=== PATIENT | male | born 1995 | race Caucasian/White ===

== ENCOUNTER → 2018-07-28 | Outpatient (CLI) | payer BC ==
--- NOTE | 2018-07-28 10:19 | US ---
EXAMINATION TYPE: US duplex aorta DATE OF EXAM: 07/28/2018 COMPARISON: NONE CLINICAL HISTORY: Z13.6 Encounter for screening for cardiovascular d. father has dist AAA and Uncle d ied from ruptured AAA EXAM MEASUREMENTS: Abdominal Aorta: Proximal: 2.2 x 2.0cm Mid: 1.6 x 1.7cm Distal: 1.4 x 1.4cm Bifurcation: 0.9cm 0.9cm Normal caliber aorta seen with no obvious abnormality seen. IMPRESSION: No sonographic evidence of abdominal aortic aneurysm in the visualized portions of the ab dominal aorta.
== END | disposition home or self-care (01) ==
LOC: RADUSWWP 09:47
PROVIDERS: ATTEND Family Medicine
DX: Z13.6 Encounter for screening for cardiovascular disorders (principal)
CPT/HCPCS: 93979

== ENCOUNTER → 2021-07-24 | Outpatient (CLI) | payer SELFPAY ==
--- NOTE | 2021-07-24 08:48 | US ---
EXAMINATION TYPE: US liver DATE OF EXAM: 07/24/2021 COMPARISON: NONE CLINICAL HISTORY: R94.5 ABN LIVER FUNCTION TEST. Abnormal labs with no pain or other symptoms EXAM MEASUREMENTS: Liver Length: 17.9 cm Gallbladder Wall: 0.2 cm CBD: 0.2 cm Right Kidney: 1.8 x 5.3 x 5.4 cm Pancreas: Tail obscured by overlying bowel gas Liver: Increased attenuation, no surrounding ascites. Gallbladder: No stones seen Evidence for sonographic Jensen's sign: No CBD: wnl Right Kidney: No hydronephrosis or masses seen Heterogeneous hyperechoic appearance of liver. Evaluation for focal masses suboptimal due to the hete rogeneity. IMPRESSION: Heterogeneous hyperechoic appearance of liver consistent with diffuse fatty infiltration and/or underlying hepatocellular disease. Former is favored. Patient may benefit with ultrasound elas tography to further evaluate.
== END | disposition home or self-care (01) ==
LOC: RADUSWWP 08:05
PROVIDERS: ATTEND Family Medicine
DX: K76.89 Other specified diseases of liver (principal)
CPT/HCPCS: 76705

== ENCOUNTER → 2021-10-08 | Outpatient (CLI) | payer BC ==
[2021-10-09 01:15] LABS: African American GFR (CKD) 103.8 (60.0-200.0); Albumin 4.5 g/dL (3.8-4.9); Anion Gap 12.8 mmol/L (10.00-18.00); BUN/Creat Ratio 14.91 Ratio (12.00-20.00); Blood Urea Nitrogen 16.7 mg/dL (9.0-27.0); Calcium 9.7 mg/dL (8.7-10.3); Carbon Dioxide 21.9 mmol/L (20.0-27.5); Non-African American GFR(CKD) 89.5 (60.0-200.0); Potassium 4.4 mmol/L (3.5-5.5); Total Protein 7.3 g/dL (6.2-8.2)
[2021-10-09 01:16] LABS: % Iron Saturation 36.96 (15.00-50.00); Albumin/Globulin Ratio 1.66 (1.60-3.17); Globulin 2.7 g/dL (1.6-3.3); Total Bilirubin 0.3 mg/dL (0.30-1.20)
[2021-10-09 01:53] LABS: Basophils # (A) 0.04 X 10*3/uL (0.00-0.10); Basophils % (A) 0.5 %; Eosinophils # (A) 0.29 X 10*3/uL (0.04-0.35); Eosinophils % (A) 3.8 %; HCT 44.7 % (39.6-50.0); HGB 15.2 g/dL (13.0-17.0); Immature Grans, Automated 0.1 %; Lymphocytes # (A) 2.87 X 10*3/uL (0.90-5.00); Lymphocytes % (A) 37.5 %; MCH 30.7 pg (27.0-32.0); MCV 90.3 fL (80.0-97.0); Mean Platelet Volume 10.7 fL (9.5-12.2); Monocytes % (A) 7.8 %; NRBC Per 100 WBC 0 /100 WBCS (0.0-0.0); Neutrophils # (A) 3.85 X 10*3/uL (1.80-7.70); Neutrophils % (A) 50.3 %; Platelet Count 298 X 10*3/uL (140-440); RBC 4.95 X 10*6/uL (4.40-5.60); RDW 12.3 % (11.5-14.5); WBC 7.66 X 10*3/uL (4.50-10.00)
[2021-10-09 05:10] LABS: Ceruloplasmin 19.9 mg/dL (20.0-60.0)
[2021-10-09 08:17] LABS: Protein, Total 7.4 g/dL (6.2-8.2)
[2021-10-09 14:51] LABS: Albumin 4.34 g/dL (3.80-4.90); Gamma Globulin 1.38 g/dL (0.70-1.50)
== END | disposition home or self-care (01) ==
LOC: LABWHC1 15:27
PROVIDERS: ATTEND Internal Medicine Gastroenterology
DX: R74.01 Elevation of levels of liver transaminase levels (principal)
CPT/HCPCS: 36415; 80053; 82103; 82390; 82728; 83540; 83550; 84165; 85025; 86038

== ENCOUNTER → 2022-07-09 | Outpatient (CLI) | payer BC ==
[2022-07-09 23:15] LABS: HGB 14.8 g/dL (13.0-17.0); MCH 29.7 pg (27.0-32.0); MCHC 32.2 g/dL (32.0-37.0); MCV 92.4 fL (80.0-97.0); Mean Platelet Volume 10.2 fL (9.5-12.2); NRBC Per 100 WBC 0 /100 WBCS (0.0-0.0); Platelet Count 277 X 10*3/uL (140-440); RBC 4.98 X 10*6/uL (4.40-5.60); RDW 12.4 % (11.5-14.5); WBC 7.17 X 10*3/uL (4.50-10.00)
[2022-07-09 23:44] LABS: African American GFR (CKD) 112.7 (60.0-200.0); Albumin 4.6 g/dL (3.8-4.9); Albumin/Globulin Ratio 1.53 (1.60-3.17); Anion Gap 10.6 mmol/L (10.00-18.00); BUN/Creat Ratio 12.12 Ratio (12.00-20.00); Blood Urea Nitrogen 12.6 mg/dL (9.0-27.0); Carbon Dioxide 26.4 mmol/L (20.0-27.5); Non-African American GFR(CKD) 97.3 (60.0-200.0); Potassium 4.3 mmol/L (3.5-5.5); Total Bilirubin 0.5 mg/dL (0.30-1.20); Total Protein 7.6 g/dL (6.2-8.2)
[2022-07-09 23:52] LABS: Basophils # (A) 0.02 X 10*3/uL (0.00-0.10); Basophils % (A) 0.3 %; Eosinophils % (A) 1.4 %; Immature Grans, Automated 0.3 %; Lymphocytes # (A) 2.08 X 10*3/uL (0.90-5.00); Monocytes # (A) 0.67 X 10*3/uL (0.20-1.00); Monocytes % (A) 9.3 %; Neutrophils # (A) 4.28 X 10*3/uL (1.80-7.70); Neutrophils % (A) 59.7 %; RBC Morphology NORMAL
== END | disposition home or self-care (01) ==
LOC: LABWHC1 13:45
PROVIDERS: ATTEND Internal Medicine Gastroenterology
DX: K76.0 Fatty (change of) liver, not elsewhere classified (principal)
CPT/HCPCS: 36415; 80053; 85025

== ENCOUNTER → 2023-02-18 | Outpatient (CLI) | payer BC | END | disposition home or self-care (01) | LOC: LABWHC1 11:56 | PROVIDERS: ATTEND Internal Medicine Gastroenterology | DX: K76.0 Fatty (change of) liver, not elsewhere classified (principal) | CPT/HCPCS: 36415 ==

== ENCOUNTER 2023-05-25 21:38 | Emergency (ER) | payer BC ==
[2023-05-25 21:57] VITALS: BP 121/74; PULSE 65; RESP 18; TEMP 97.9
[2023-05-25 22:17] LABS: Basophils % (A) 0 %; Eosinophils # (A) 0.2 k/uL (0-0.7); Eosinophils % (A) 3 %; HCT 42.4 % (39.0-53.0); HGB 14.6 gm/dL (13.0-17.5); Lymphocytes # (A) 3.6 k/uL (1.0-4.8); Lymphocytes % (A) 41 %; MCHC 34.5 g/dL (31.0-37.0); Monocytes # (A) 0.5 k/uL (0-1.0); Monocytes % (A) 5 %; Neutrophils # (A) 4.3 k/uL (1.3-7.7); Neutrophils % (A) 49 %; Platelet Count 241 k/uL (150-450); RBC 4.71 m/uL (4.30-5.90); RDW 12.3 % (11.5-15.5); WBC 8.9 k/uL (3.8-10.6)
--- NOTE | 2023-05-25 22:31 | XR ---
EXAMINATION TYPE: XR chest 2V DATE OF EXAM: 05/25/2023 10:11 PM CLINICAL INDICATION:Male, 28 years old with history of chest pain; [facility] COMPARISON: None TECHNIQUE: XR chest 2V Frontal and lateral views of the chest. FINDINGS: Lungs/Pleura: There is no evidence of pleural effusion, focal consolidation, or pneumothorax. Pulmonary vascularity: Unremarkable. Heart/mediastinum: Cardiomediastinal silhouette is unremarkable. Musculoskeletal: No acute osseous pathology. Other findings: None IMPRESSION: No acute cardiopulmonary disease/process.
[2023-05-25 22:32] LABS: ALT 29 U/L (4-49); AST 26 U/L (17-59); African American GFR (CKD) >90 (>60 ml/min/1.73 sqM); Albumin 4.6 g/dL (3.5-5.0); Alkaline Phosphatase 77 U/L (38-126); Anion Gap 10 mmol/L; Blood Urea Nitrogen 15 mg/dL (9-20); Calcium 9.5 mg/dL (8.4-10.2); Carbon Dioxide 27 mmol/L (22-30); Chloride 102 mmol/L (98-107); Glucose 91 mg/dL (74-99); Non-African American GFR(CKD) >90 (>60 ml/min/1.73 sqM); Potassium 4.2 mmol/L (3.5-5.1); Sodium 139 mmol/L (137-145); Total Bilirubin 0.5 mg/dL (0.2-1.3); Total Protein 7.7 g/dL (6.3-8.2)
[2023-05-25 22:33] LABS: Prothrombin Time 10.8 sec (10.0-12.5)
== END 2023-05-26 01:00 | disposition left against medical advice (07) ==
LOC: EC 21:38
DX: Z53.21 Procedure and treatment not carried out due to patient leaving prior to being seen by health care provider (principal); R07.9 Chest pain, unspecified
CPT/HCPCS: 36415; 71046; 80053; 84484; 85025; 85610; 85730; 93005; 99499

== ENCOUNTER 2023-06-28 09:21 | Emergency (ER) | payer BC ==
[2023-06-28 09:52] VITALS: TEMP 98.3
[2023-06-28] MEDS ORDERED: ONDANSETRON 4 MG/2 ML VIAL IVP STA (10:09)
[2023-06-28] MEDS ORDERED: SODIUM CHLORIDE 0.9% 1,000 ML IV STA (10:09)
[2023-06-28] MEDS ORDERED: SODIUM CHLORIDE 0.9% 500 ML 500 ML IV STA (10:09)
[2023-06-28 10:34] LABS: Basophils % (A) 0 %; Eosinophils # (A) 0.1 k/uL (0-0.7); Eosinophils % (A) 1 %; HCT 43.8 % (39.0-53.0); HGB 15.2 gm/dL (13.0-17.5); Lymphocytes # (A) 1.9 k/uL (1.0-4.8); Lymphocytes % (A) 21 %; MCHC 34.7 g/dL (31.0-37.0); MCV 89.1 fL (80.0-100.0); Mean Platelet Volume 7.6; Monocytes # (A) 0.3 k/uL (0-1.0); Monocytes % (A) 3 %; Neutrophils # (A) 6.8 k/uL (1.3-7.7); Neutrophils % (A) 74 %; Platelet Count 244 k/uL (150-450); RBC 4.92 m/uL (4.30-5.90); RDW 11.9 % (11.5-15.5); WBC 9.2 k/uL (3.8-10.6)
--- NOTE | 2023-06-28 10:41 | ED ---
Abdominal Pain HPI - General Chief Complaint: Abdominal Pain Stated Complaint: right abd pain Time Seen by Provider: 06/28/23 09:42 Source: patient, RN notes reviewed Mode of arrival: wheelchair Limitations: no limitations - History of Present Illness Initial Comments: This a 28-year-old male presents emergency department tingling of abdominal pain. Patient states she's had increasing last few days. Patient states that nausea vomiting pain. Patient states he is unable to keep any down he complains of right lower quadrant pain and epigastric discomfort. Denies any flank pain no history kidney stones no prior GI disorders no prior abdominal surgeries. Patient denies dysuria hematuria. Nothing makes the pain feel better - Related Data Previous Rx's Medication Instructions Recorded Ondansetron Odt [Zofran Odt] 4 mg PO Q8HR PRN #10 tab 06/28/23 Allergies Allergy/AdvReac Type Severity Reaction Status Date / Time No Known Allergies Allergy Verified 06/28/23 09:40 Review of Systems ROS Statement: Those systems with pertinent positive or pertinent negative responses have been documented in the HPI. ROS Other: All systems not noted in ROS Statement are negative. Past Medical History Past Medical History: No Reported History History of Any Multi-Drug Resistant Organisms: MRSA Date of last positivie culture/infection: 2010 Past Surgical History: No Surgical Hx Reported Past Psychological History: No Psychological Hx Reported Smoking Status: Vaper Past Alcohol Use History: None Reported Past Drug Use History: None Reported General Exam Limitations: no limitations General appearance: alert, in no apparent distress Head exam: Present: atraumatic, normocephalic, normal inspection Eye exam: Present: normal appearance, PERRL, EOMI. Absent: scleral icterus, conjunctival injection, periorbital swelling Neck exam: Present: normal inspection, full ROM. Absent: tenderness, meningismus, lymphadenopathy Respiratory exam: Present: normal lung sounds bilaterally. Absent: respiratory distress, wheezes, rales, rhonchi, stridor Cardiovascular Exam: Present: regular rate, normal rhythm, normal heart sounds. Absent: systolic murmur, diastolic murmur, rubs, gallop, clicks GI/Abdominal exam: Present: soft, normal bowel sounds. Absent: distended, tenderness, guarding, rebound, rigid Back exam: Absent: CVA tenderness (R), CVA tenderness (L) Neurological exam: Present: alert, oriented X3 Skin exam: Present: warm, dry, intact, normal color. Absent: rash Course Vital Signs 06/28/23 06/28/23 06/28/23 09:40 10:37 12:54 Temperature 98.3 F Pulse Rate 61 55 L 80 Respiratory 18 20 20 Rate Blood Pressure 119/86 117/73 138/80 O2 Sat by Pulse 97 98 98 Oximetry Medical Decision Making - Medical Decision Making Was pt. sent in by a medical professional or institution (, [facility], [facility], urgent care, hospital, or fdc...) When possible be specific @ -No Did you speak to anyone other than the patient for history (EMS, parent, family, police, friend...)? What history was obtained from this source @ -No Did you review nursing and triage notes (agree or disagree)? Why? @ -I reviewed and agree with nursing and triage notes Were old charts reviewed (outside hosp., previous admission, EMS record, old EKG, old radiological studies, urgent care reports/EKG's, fdc records)? Report findings @ -No old charts were reviewed Differential Diagnosis (chest pain, altered mental status, abdominal pain women, abdominal pain men, vaginal bleeding, weakness, fever, dyspnea, syncope, headache, dizziness, GI bleed, back pain, seizure, CVA, palpatations, mental health, musculoskeletal)? @ -Differential Abdominal Pain Men: Appendicitis, cholecystitis, diverticulosis, ischemic bowel, pancreatitis, hepatitis, UTI, gastroenteritis, AAA, incarcerated hernia, bowel obstruction, constipation, inflammatory bowel, hepatitis, peptic ulcer disease, splenic infarction, perforated viscus, testicular torsion, this is not meant to be an all-inclusive listlicable EKG interpreted by me (3pts min.). @ -None X-rays interpreted by me (1pt min.). @ -None done CT interpreted by me (1pt min.). @ -CT shows evidence of enteritis, colitis type changes there is possible under lying concern for IBD U/S interpreted by me (1pt. min.). @ -None done What testing was considered but not performed or refused? (CT, X-rays, U/S, labs)? Why? @ -None What meds were considered but not given or refused? Why? @ -None Did you discuss the management of the patient with other professionals (professionals i.e. , PA, FLUTE TEACHER, lab, RT, psych nurse, social and political studies professor, pond tender, teacher, preventive medicine officer, nurse case manager)? Give summary @ -No Was smoking cessation discussed for >3mins.? @ -No Was critical care preformed (if so, how long)? @ -No Were there social determinants of health that impacted care today? How? (Homelessness, low income, unemployed, alcoholism, drug addiction, transportation, low edu. Level, literacy, decrease access to med. care, [facility], rehab)? @ -No Was there de-escalation of care discussed even if they declined (Discuss DNR or withdrawal of care, Hospice)? DNR status @ -No What co-morbidities impacted this encounter? (DM, HTN, Smoking, COPD, CAD, Ca ncer, CVA, ARF, Chemo, Hep., AIDS, mental health diagnosis, sleep apnea, morbid obesity)? @ -None Was patient admitted / discharged? Hospital course, mention meds given and route, prescriptions, significant lab abnormalities, going to OR and other pertinent info. @ -Discharged patient is advised to follow-up with Dr. Dejah MYERS for colonoscopy as there is concern for a bowel disease. Patient more likely has underlying viral enteritis be discharged with supportive treatment with close follow-up Undiagnosed new problem with uncertain prognosis? @ -No Drug Therapy requiring intensive monitoring for toxicity (Heparin, Nitro, Insulin, Cardizem)? @ -No Were any procedures done? @ -No Diagnosis/symptom? @ -Enteritis, colitis Acute, or Chronic, or Acute on Chronic? @ -Acute Uncomplicated (without systemic symptoms) or Complicated (systemic symptoms)? @ -Uncomplicated Side effects of treatment? @ -No Exacerbation, Progression, or Severe Exacerbation? @ -No Poses a threat to life or bodily function? How? (Chest pain, [place], [place], pneumonia, PE, COPD, DKA, ARF, appy, cholecystitis, CVA, Diverticulitis, Homicidal, Suici toribio, threat to staff... and all critical care pts) @ -No - Lab Data Result diagrams: 06/28/23 10:09 06/28/23 10:09 Lab Results 06/28/23 06/28/23 06/28/23 Range/Units 10:09 10:09 10:09 WBC 9.2 (3.8-10.6) k/uL RBC 4.92 (4.30-5.90) m/uL Hgb 15.2 (13.0-17.5) gm/dL Hct 43.8 (39.0-53.0) % MCV 89.1 (80.0-100.0) fL MCH 31.0 (25.0-35.0) pg MCHC 34.7 (31.0-37.0) g/dL RDW 11.9 (11.5-15.5) % Plt Count 244 (150-450) k/uL MPV 7.6 Neutrophils % 74 % Lymphocytes % 21 % Monocytes % 3 % Eosinophils % 1 % Basophils % 0 % Neutrophils # 6.8 (1.3-7.7) k/uL Lymphocytes # 1.9 (1.0-4.8) k/uL Monocytes # 0.3 (0-1.0) k/uL Eosinophils # 0.1 (0-0.7) k/uL Basophils # 0.0 (0-0.2) k/uL Sodium 138 (137-145) mmol/L Potassium 4.5 (3.5-5.1) mmol/L Chloride 104 (98-107) mmol/L Carbon Dioxide 22 (22-30) mmol/L Anion Gap 12 mmol/L BUN 13 (9-20) mg/dL Creatinine 0.81 (0.66-1.25) mg/dL Est GFR (CKD-EPI)AfAm >90 (>60 ml/min/1.73 sqM) Est GFR (CKD-EPI)NonAf >90 (>60 ml/min/1.73 sqM) Glucose 141 H (74-99) mg/dL Plasma Lactic Acid Odug 1.6 (0.7-2.0) mmol/L Calcium 10.0 (8.4-10.2) mg/dL Total Bilirubin 0.5 (0.2-1.3) mg/dL AST 25 (17-59) U/L ALT 27 (4-49) U/L Alkaline Phosphatase 72 (38-126) U/L Total Protein 7.8 (6.3-8.2) g/dL Albumin 4.7 (3.5-5.0) g/dL Lipase 54 (23-300) U/L Urine Color Urine Appearance (Clear) Urine pH (5.0-8.0) Ur Specific [place] (1.001-1.035) Urine Protein (Negative) Urine Glucose (UA) (Negative) Urine Ketones (Negative) Urine Blood (Negative) Urine Nitrite (Negative) Urine Bilirubin (Negative) Urine Urobilinogen (<2.0) mg/dL Ur Leukocyte Esterase (Negative) Urine RBC (0-5) /hpf Urine WBC (0-5) /hpf Amorphous Sediment (None) /hpf Urine Mucus (None) /hpf 06/28/23 Range/Units 10:24 WBC (3.8-10.6) k/uL RBC (4.30-5.90) m/uL Hgb (13.0-17.5) gm/dL Hct (39.0-53.0) % MCV (80.0-100.0) fL MCH (25.0-35.0) pg MCHC (31.0-37.0) g/dL RDW (11.5-15.5) % Plt Count (150-450) k/uL MPV Neutrophils % % Lymphocytes % % Monocytes % % Eosinophils % % Basophils % % Neutrophils # (1.3-7.7) k/uL Lymphocytes # (1.0-4.8) k/uL Monocytes # (0-1.0) k/uL Eosinophils # (0-0.7) k/uL Basophils # (0-0.2) k/uL Sodium (137-145) mmol/L Potassium (3.5-5.1) mmol/L Chloride (98-107) mmol/L Carbon Dioxide (22-30) mmol/L Anion Gap mmol/L BUN (9-20) mg/dL Creatinine (0.66-1.25) mg/dL Est GFR (CKD-EPI)AfAm (>60 ml/min/1.73 sqM) Est GFR (CKD-EPI)NonAf (>60 ml/min/1.73 sqM) Glucose (74-99) mg/dL Plasma Lactic Acid Doug (0.7-2.0) mmol/L Calcium (8.4-10.2) mg/dL Total Bilirubin (0.2-1.3) mg/dL AST (17-59) U/L ALT (4-49) U/L Alkaline Phosphatase (38-126) U/L Total Protein (6.3-8.2) g/dL Albumin (3.5-5.0) g/dL Lipase (23-300) U/L Urine Color Yellow Urine Appearance Cloudy (Clear) Urine pH 7.0 (5.0-8.0) Ur Specific [place] 1.027 (1.001-1.035) Urine Protein Negative (Negative) Urine Glucose (UA) 2+ H (Negative) Urine Ketones Negative (Negative) Urine Blood Negative (Negative) Urine Nitrite Negative (Negative) Urine Bilirubin Negative (Negative) Urine Urobilinogen <2.0 (<2.0) mg/dL Ur Leukocyte Esterase Negative (Negative) Urine RBC 1 (0-5) /hpf Urine WBC 2 (0-5) /hpf Amorphous Sediment Few H (None) /hpf Urine Mucus Occasional H (None) /hpf Disposition Clinical Impression: Colitis, Abdominal pain Disposition: HOME SELF-CARE Condition: Stable Instructions (If sedation given, give patient instructions): Colitis (ED) Additional Instructions: Please return to the Emergency Department if symptoms worsen or any other concerns. Prescriptions: Ondansetron Odt [Zofran Odt] 4 mg PO Q8HR PRN #10 tab PRN Reason: Nausea Is patient prescribed a controlled substance at d/c from ED?: No Referrals: Jovani Young MD [Primary Care Provider] - 1-2 days Lizeth Otto MD [STAFF PHYSICIAN] - 1-2 days Billy Gama MD [STAFF PHYSICIAN] - 1-2 days Time of Disposition: 12:32
[2023-06-28 10:44] LABS: ALT 27 U/L (4-49); AST 25 U/L (17-59); African American GFR (CKD) >90 (>60 ml/min/1.73 sqM); Albumin 4.7 g/dL (3.5-5.0); Alkaline Phosphatase 72 U/L (38-126); Anion Gap 12 mmol/L; Blood Urea Nitrogen 13 mg/dL (9-20); Carbon Dioxide 22 mmol/L (22-30); Chloride 104 mmol/L (98-107); Glucose 141 mg/dL (74-99); Lipase 54 U/L (23-300); Non-African American GFR(CKD) >90 (>60 ml/min/1.73 sqM); Potassium 4.5 mmol/L (3.5-5.1); Sodium 138 mmol/L (137-145); Total Bilirubin 0.5 mg/dL (0.2-1.3); Total Protein 7.8 g/dL (6.3-8.2)
[2023-06-28 10:45] LABS: Amorphous Sediment,Urine Few /hpf; Appearance,Urine Cloudy (Clear); Bilirubin,Urine Negative (Negative); Blood,Urine Negative (Negative); Color,Urine Yellow; Glucose,Urine (UA) 2+ (Negative); Ketones,Urine Negative (Negative); Leukocyte Esterase,Urine Negative (Negative); Mucus,Urine Occasional /hpf; Nitrite,Urine Negative (Negative); Protein,Urine Negative (Negative); RBC,Urine 1 /hpf (0-5); Specific Gravity,Urine 1.027 (1.001-1.035); Urobilinogen,Urine <2.0 mg/dL (<2.0); WBC,Urine 2 /hpf (0-5)
[2023-06-28 10:55] VITALS: RESP 20
--- NOTE | 2023-06-28 12:03 | CT ---
EXAMINATION TYPE: CT abdomen pelvis w con DATE OF EXAM: 06/28/2023 COMPARISON: NONE HISTORY: 28-year-old male Abdominal pain and vomiting TECHNIQUE: Contiguous axial scanning of the abdomen and pelvis following administration of 100 ml Iso torsten 300 IV contrast. Delayed images through the kidneys and coronal/sagittal reconstructions perform ed. CT DLP: 763.5 mGycm Automated exposure control for dose reduction was used. FINDINGS: LUNG BASES: No significant abnormality is appreciated. LIVER/GB: Liver enlarged at 20.1 cm. Portal venous system is patent. No biliary ductal dilatation. Ga llbladder unremarkable. PANCREAS: No significant abnormality is seen. SPLEEN: No significant abnormality is seen. ADRENALS: No significant abnormality is seen. KIDNEYS: No significant abnormality is seen. BOWEL: Normal appendix. Circumferential wall thickening at the terminal ileum, axial image 68e, and c oronal image 37. Prominent fluid-filled small bowel loops in the lower abdomen/pelvis. No significant stool burden. Subsegmental mild circumferential wall thickening of mid to distal sigmo id colon and also segments of the splenic flexure and descending colon. No pericolonic inflammatory c hange. LYMPH NODES: No significant abnormality is seen. OTHER: No significant abnormality is seen. PELVIS: Left-sided pelvic phleboliths. No abnormal fluid collection the pelvis or pelvic lymphadenopa thy. BONES: Moderate degenerative disc disease L5-S1. Greater than expected for patient's age. Query any s moking history. IMPRESSION: 1. FINDINGS MAY REFLECT UNDERLYING INFECTIOUS OR INFLAMMATORY ENTERITIS INCLUDING A MILD TERMINAL ILE ITIS. THERE IS ADDITIONAL SEGMENTAL WALL THICKENING OF THE MID TO DISTAL SIGMOID COLON AND SEGMENTS O F THE SPLENIC FLEXURE AND DESCENDING COLON WELL. AGAIN, CONSIDER AN INFECTIOUS ETIOLOGY AND CORREL ATE TO EXCLUDE INFLAMMATORY BOWEL DISEASE. 2. NO ABSCESS OR FREE AIR.
[2023-06-28 13:18] VITALS: BP 138/80; PULSE 80
== END 2023-06-28 12:56 | disposition home or self-care (01) ==
LOC: EC 09:21
DX: K52.9 Noninfective gastroenteritis and colitis, unspecified (principal); F17.290 Nicotine dependence, other tobacco product, uncomplicated
CPT/HCPCS: 36415; 80053; 83605; 83690; 85025; 81001; 74177; 99284; 96374; 96361 ×2; J2405; Q9967

== ENCOUNTER → 2023-07-11 | Outpatient (CLI) | payer BC ==
--- NOTE | 2023-07-28 05:59 | EM ---
EVENT MONITOR The patient was monitored between the and the July. Rhythm strip revealed a sinus mechanism with normal conduction. No pauses were noted. No atrial fibrillation was noted. Episodes of sinus bradycardia during the night were noted. DUDLEY / RAFAELN: [id number] /
== END | disposition home or self-care (01) ==
LOC: RADECHMAIN 08:02
PROVIDERS: ATTEND Family Medicine
DX: R00.1 Bradycardia, unspecified (principal); R07.9 Chest pain, unspecified
CPT/HCPCS: 93270